=== PATIENT | female | born 1990 | race Caucasian/White ===

== ENCOUNTER → 2020-02-03 | Outpatient (CLI) | payer BC | END | disposition home or self-care (01) | LOC: RADECHMAIN 11:49 | PROVIDERS: ATTEND Family Medicine | DX: I47.1 Supraventricular tachycardia (principal); R00.1 Bradycardia, unspecified | CPT/HCPCS: 93225; 93226 ==

== ENCOUNTER 2022-08-27 02:43 | Inpatient (IN) | payer BC ==
[2022-08-27] MEDS ORDERED: miSOPROStoL 200 MCG TAB PO PRN (03:08)
[2022-08-27] MEDS ORDERED: TRANEXAMIC ACID IN NACL,ISO-OS 1,000 MG in EMPTY BAG 1 BAG IV PRN (03:08)
[2022-08-27] MEDS ORDERED: TERBUTALINE 1 MG/ML VIAL SQ PRN (03:08)
[2022-08-27] MEDS ORDERED: LIDOCAINE 0.5% (PF) 5 MG/ML (50 ML SDV) SQ PRN (03:08)
[2022-08-27] MEDS ORDERED: METHYLERGONOVINE 0.2 MG/ML 1 ML AMP IM PRN (03:08)
[2022-08-27] MEDS ORDERED: CLINDAMYCIN 900 MG in DEXTROSE 5% IN WATER 50 ML IVPB STA ×2 (03:08)
[2022-08-27] MEDS ORDERED: CARBOPROST TROMETHAMINE 250 MCG/ML 1 ML AMP IM PRN (03:08)
[2022-08-27] MEDS ORDERED: OXYTOCIN 10 UNIT/ML 1 ML VIAL IM PRN (03:08)
[2022-08-27] MEDS: LACTATED RINGERS 1,000 ML IV SCH ×3 (03:40→10:12)
[2022-08-27 04:03] LABS: Basophils % (A) 1 %; Eosinophils # (A) 0.1 k/uL (0-0.7); Eosinophils % (A) 1 %; HCT 35.6 % (34.0-46.0); HGB 12.6 gm/dL (11.4-16.0); Lymphocytes # (A) 1.8 k/uL (1.0-4.8); Lymphocytes % (A) 21 %; MCHC 35.4 g/dL (31.0-37.0); MCV 93.4 fL (80.0-100.0); Monocytes # (A) 0.4 k/uL (0-1.0); Monocytes % (A) 5 %; Neutrophils % (A) 70 %; RBC 3.82 m/uL (3.80-5.40); RDW 12.9 % (11.5-15.5); WBC 8.6 k/uL (3.8-10.6)
[2022-08-27] MEDS ORDERED: fentaNYL (PF) 50 MCG/ML 5 ML AMP ONE (04:29)
[2022-08-27] MEDS ORDERED: SODIUM CHLORIDE 0.9% 100 ML BAG ONE (04:29)
[2022-08-27] MEDS ORDERED: ROPIVACAINE 5 MG/ML 20 ML AMPULE ONE (04:29)
[2022-08-27 04:37] LABS: Large Platelets Present; Polychromasia Present
[2022-08-27 04:38] LABS: Platelet Count 96 k/uL (150-450)
--- NOTE | 2022-08-27 05:04 | P.HPOB ---
History of Present Illness H&P Date: 08/27/22 Chief Complaint: Spontaneous rupture membranes This is a 32-year-old female 1 para 0 with an estimated date of confinement of 08/31/2022, estimated gestational age of 39-3/7 weeks, who presents to labor and delivery with complaints of spontaneous rupture membranes with pink tinged clear fluid at approximately 1:45 AM. She did start feeling regular contractions at about 2:30 AM. Her care has been with Dr. Wagner and has been uncomplicated per patient. labs: Random glucose-70 Blood type-O+ B surface antigen-nonreactive 1 hour Glucola-130 Hemoglobin-12 Group B streptococcus-positive Rubella-immune RPR-nonreactive Obstetrical history: Social history: She is . She works as an RN at [employer] Review of Systems Constitutional: Denies chills, Denies fever Eyes: denies blurred vision, denies pain Ears, nose, mouth and throat: Denies headache, Denies sore throat Cardiovascular: Reports rapid heart beat, Denies chest pain, Denies shortness of breath Respiratory: Denies cough Gastrointestinal: Reports abdominal pain (Contractions), Reports heartburn Genitourinary: Reports pelvic pain, Reports Musculoskeletal: Reports low back pain Integumentary: Denies pruritus, Denies rash Neurological: Denies numbness, Denies weakness Psychiatric: Denies anxiety, Denies depression Past Medical History Additional Past Medical History / Comment(s): tachycardia History of Any Multi-Drug Resistant Organisms: None Reported Past Surgical History: Ear Surgery Past Anesthesia/Blood Transfusion Reactions: No Reported Reaction Past Psychological History: No Psychological Hx Reported Smoking Status: Never smoker Past Alcohol Use History: None Reported Past Drug Use History: None Reported - Past Family History Mother Family Medical History: Hypertension Medications and Allergies Home Medications Medication Instructions Recorded Confirmed Type Omeprazole Magnesium [PriLOSEC OTC] 20 mg PO DAILY PRN 08/27/22 08/27/22 History Vit No.179/Iron/Folic 1 each PO DAILY 08/27/22 08/27/22 History [ Tablet] Allergies Allergy/AdvReac Type Severity Reaction Status Date / Time amoxicillin [From Augmentin] Allergy Unknown Verified 08/27/22 02:53 Childhood cefaclor [From Ceclor] Allergy Unknown Verified 08/27/22 02:53 Childhood clavulanic acid Allergy Unknown Verified 08/27/22 02:53 [From Augmentin] Childhood Sulfa (Sulfonamide Allergy Rash/Hives Verified 08/27/22 02:53 Antibiotics) Exam Osteopathic Statement: *. No significant issues noted on an osteopathic structural exam other than those noted in the History and Physical/Consult. Vital Signs Temp Pulse Resp BP Pulse Ox 08/27/22 03:07 97.8 F 82 16 132/95 98 Intake and Output 08/26/22 08/26/22 08/27/22 14:59 22:59 06:59 Other: Weight 58.967 kg HEENT: Within normal limits Heart: Regular rate and rhythm Lungs: Clear to auscultation bilaterally Abdomen: Cervix: 5-1/2-6/100%/-2 station, grossly ruptured clear fluid is noted heart tones: 130s baseline with good accelerations, category 1 Contractions: Every 2-3 minutes Extremities: Negative Homans Results Result Diagrams: 08/27/22 03:30 Abnormal Lab Results - Last 24 Hours (Table) 08/27/22 Range/Units 03:30 Plt Count 96 L (150-450) k/uL Assessment and Plan (1) 39 weeks gestation of Current Visit: Yes Status: Acute Code(s): Z3A.39 - 39 WEEKS GESTATION OF PRE GNANCY SNOMED Code(s): 14305469 (2) Group B Streptococcus carrier, +RV culture, currently Current Visit: Yes Status: Acute Code(s): O99.820 - STREPTOCOCCUS B CARRIER STATE COMPLICATING SNOMED Code(s): 1271454168200 Plan: Admission for active labor. Epidural anesthesia. Expectant management. Anti biotic prophylaxis for group B streptococcus. We'll give clindamycin since she is ALLERGIC to Augmentin.
[2022-08-27] MEDS ORDERED: CLINDAMYCIN 900 MG in DEXTROSE 5% IN WATER 50 ML IVPB SCH ×2 (11:15)
[2022-08-27] MEDS ORDERED: CITRIC ACID-SODIUM CITRATE 15 ML CUP PO ONE (12:01)
[2022-08-27] MEDS ORDERED: KETOROLAC 15 MG/ML 1 ML VIAL ONE (12:12)
[2022-08-27] MEDS ORDERED: MORPHINE SULFATE (PF) 0.3 MG/0.3 ML SYR ONE (12:12)
[2022-08-27] MEDS ORDERED: OXYTOCIN 10 UNIT/ML 1 ML VIAL ONE (12:12)
[2022-08-27] MEDS ORDERED: ONDANSETRON 4 MG/2 ML VIAL ONE (12:12)
[2022-08-27] MEDS ORDERED: OXYTOCIN 30 UNITS/500 ML NS 30 UNIT in SALINE 1 500ML.BAG IV SCH (12:15)
[2022-08-27] MEDS ORDERED: GENTAMICIN IVPB ONE (12:30)
[2022-08-27] MEDS ORDERED: SODIUM CHLORIDE 0.9% IVPB ONE (12:30)
[2022-08-27] MEDS ORDERED: ONDANSETRON 4 MG/2 ML VIAL IVP PRN (13:12)
[2022-08-27] MEDS ORDERED: ZOLPIDEM 5 MG TAB PO PRN (13:12)
[2022-08-27] MEDS ORDERED: NALOXONE 0.4 MG/ML 1 ML VIAL IV PRN (13:12)
[2022-08-27] MEDS ORDERED: diphenhydrAMINE 50 MG CAP PO PRN (13:12)
[2022-08-27] MEDS ORDERED: diphenhydrAMINE 25 MG CAP PO PRN (13:12)
[2022-08-27] MEDS ORDERED: METOCLOPRAMIDE 5 MG/ML 2 ML VIAL IVP PRN (13:12)
[2022-08-27] MEDS ORDERED: LANOLIN CREAM 5 GM TUBE TOPICAL PRN (13:12)
[2022-08-27] MEDS ORDERED: diphenhydrAMINE 50 MG/ML 1 ML VIAL IVP PRN ×2 (13:12)
[2022-08-27] MEDS ORDERED: SIMETHICONE 80 MG CHEWABLE PO PRN (13:12)
--- NOTE | 2022-08-27 13:12 | P.OP ---
Date of Procedure: 08/27/22 Preoperative Diagnosis: 1. at 39.3 2. arrest of descent Postoperative Diagnosis: 1. at 39.3 2. arrest of descent Procedure(s) Performed: Primary low transverse Anesthesia: spinal Surgeon: Ella Wagner Plastics Supervisor #1: Yumi Loza Estimated Blood Loss (ml): 572 IV fluids (ml): 600 Urine output (ml): 150 Pathology: none sent Condition: stable Disposition: floor Indications for Procedure: 32-year-old presented at 39 weeks and 3 days in active labor. She did progress to complete and pushed for over 3 hours without descent. The caput was coming through but the head remained at -1 station. Operative Findings: Viable male, Apgars 8, 9, weight 7 lbs. 1 oz. Normal uterus, tubes, ovaries. Description of Procedure: Patient was taken to the operating room where spinal anesthesia was found be adequate. She was prepped and draped in normal sterile fashion in dorsal supine position with a leftward tilt. Pfannenstiel skin incision was made the scalpel and carried through to the underlying layer of fascia with the scalpel. Fascia was incised in midline and carried bilaterally with the Vergara scissors. The superior aspect of the fascial incision was grasped with Adger clamps elevated and the underlying rectus muscles dissected off with the Vergara's. Attention was then turned to inferior aspect of same incision which in a similar fashion was grasped tented up and the underlying rectus muscles dissected off with the Vergara's. The rectus muscles were the midline and the peritoneum was identified tented up and entered sharply with the scalpel. The incision was extended superiorly and inferiorly with good visualization of the bladder. The bladder blade was inserted and the vesicouterine peritoneum was incised the Metzenbaums then carried bilaterally and bladder flap created digitally. A low transverse incision was then made on the uterus with the scalpel. This was carried bilaterally and digital manner. 's head delivered atraumatically, nose and mouth bulb suctioned, cord clamped and cut, handed off to waiting nurses. Apgars 8,9, weight 7 lbs. 1 oz. Placenta delivered manually, i ntact with three-vessel cord. The uterus is exteriorized and cleared of all clots and debris. The uterine incision was closed with 0 Vicryl in a running locked fashion. Second layer of the same sutures used in imbricating fashion to obtain excellent hemostasis. Bladder flap was then reapproximated using 2-0 Vicryl in a running fashion. Both ovaries and tubes appeared normal. The uterus was placed back into the abdomen. The peritoneum was reapproximated using 2-0 Vicryl in a running fashion. The muscles were reapproximated using 2- 0 Vicryl in interrupted fashion. The fascia was reapproximated using 0 Vicryl in a running fashion. The subcutaneous tissues closed with 3-0 Vicryl running fashion. The skin was closed kenneth. Patient tolerated the procedure well, sponge and instrument counts were correct times 2 and she was taken to the recovery room in stable condition. There was some blood-tinged urine at the end of the procedure but I did visually examined the bladder extensively and did not see any areas of laceration or damage. I do believe that the urine is tinged due to a traumatic catheter placement as well as the head being low and I delivered it. Patient also has some low platelets which could lead to this.
[2022-08-27] MEDS: ACETAMINOPHEN IV (For NPO) 1,000 MG in EMPTY BAG 1 BAG IVPB SCH (15:33)
[2022-08-27] MEDS: ACETAMINOPHEN TAB 500 MG TAB PO SCH (19:14)
[2022-08-27] MEDS: KETOROLAC 15 MG/ML 1 ML VIAL IVP SCH (20:31)
[2022-08-27] MEDS: SENNOSIDES-DOCUSATE SODIUM 1 EACH TAB PO SCH (22:34)
[2022-08-27] MEDS: IBUPROFEN 600 MG TAB PO SCH (22:34)
[2022-08-28] MEDS: KETOROLAC 15 MG/ML 1 ML VIAL IVP SCH ×3 (02:43→19:36)
[2022-08-28] MEDS: LACTATED RINGERS 1,000 ML IV SCH ×5 (05:21→19:37)
[2022-08-28] MEDS: IBUPROFEN 600 MG TAB PO SCH ×3 (05:21→16:34)
[2022-08-28] MEDS: ACETAMINOPHEN TAB 500 MG TAB PO SCH ×5 (05:25→20:34)
[2022-08-28] MEDS: ACETAMINOPHEN IV (For NPO) 1,000 MG in EMPTY BAG 1 BAG IVPB SCH (05:26)
--- NOTE | 2022-08-28 06:25 | P.PNOBGPC ---
Subjective - Subjective Principal diagnosis: Status post primary low transverse postop day 1 Interval history: Patient seen and examined. Denies nausea, vomiting, chest pain, shortness of breath or calf pain. Her urine is clear yellow draining out of the catheter. Patient reports: Reports appetite normal, Reports pain well controlled : doing well Objective - Vital Signs Latest vital signs: Vital Signs Temp Pulse Resp BP Pulse Ox 08/28/22 04:00 98.1 F 75 16 116/75 98 08/28/22 00:00 72 16 126/75 99 08/27/22 20:00 97.9 F 79 16 113/73 97 08/27/22 16:13 96.5 F L 82 15 141/87 08/27/22 15:00 96.5 F L 76 15 142/88 08/27/22 14:30 76 15 122/83 08/27/22 14:00 96.8 F L 80 15 103/59 08/27/22 13:45 80 16 103/69 98 08/27/22 13:30 85 15 101/65 97 08/27/22 13:15 83 15 100/62 98 08/27/22 13:00 96.8 F L 93 15 100/56 98 Intake and Output 08/27/22 08/27/22 08/28/22 14:59 22:59 06:59 Output Total 722 1400 Balance -722 -1400 Output: Urine 150 800 Estimated Blood Loss 572 Output, Quantitative 600 Blood Loss Other: Voiding Method Indwelling Catheter Indwelling Catheter Indwelling Catheter - Exam Lungs: bilateral: normal Chest: Normal S1, Normal S2 Extremities: Present: normal Abdomen: Present: normal appearance, soft. Absent: distention, tenderness Incision: Present: normal, dry, intact Uterus: Present: normal, firm Assessment and Plan (1) Status post primary low transverse section Current Visit: Yes Status: Acute Code(s): Z98.891 - HISTORY OF UTERINE SCAR FROM PREVIOUS SURGERY SNOMED Code(s): 908091699 Plan: 1. DC catheter and DC IV fluids 2. Increase ambulation
[2022-08-28 07:05] LABS: Basophils % (A) 0 %; Eosinophils % (A) 0 %; HCT 25.7 % (34.0-46.0); Lymphocytes # (A) 1.2 k/uL (1.0-4.8); Lymphocytes % (A) 11 %; MCH 32.6 pg (25.0-35.0); MCHC 34.3 g/dL (31.0-37.0); MCV 94.9 fL (80.0-100.0); Mean Platelet Volume 8.8; Monocytes # (A) 0.4 k/uL (0-1.0); Monocytes % (A) 4 %; Neutrophils # (A) 9.4 k/uL (1.3-7.7); Neutrophils % (A) 84 %; RBC 2.71 m/uL (3.80-5.40); RDW 13.1 % (11.5-15.5); WBC 11.2 k/uL (3.8-10.6)
[2022-08-28 07:07] LABS: HGB 8.8 gm/dL (11.4-16.0); Platelet Count 88 k/uL (150-450)
--- NOTE | 2022-08-28 07:29 | P.PN ---
Progress Note - Text Progress Note Date: 08/28/22 Postoperative day 1 status post section under spinal anesthesia, and i ntrathecal morphine given for postoperative analgesia, patient doing well, there is no anesthesia related complications, Patient had no headache, vital signs stable , Assessment and plan= postop day 1 status post , doing well there is no anesthesia related complication.
[2022-08-28] MEDS: SENNOSIDES-DOCUSATE SODIUM 1 EACH TAB PO SCH ×2 (11:11→20:34)
[2022-08-29] MEDS: IBUPROFEN 600 MG TAB PO SCH ×2 (01:06→07:41)
[2022-08-29 01:42] VITALS: RESP 16
[2022-08-29] MEDS: KETOROLAC 15 MG/ML 1 ML VIAL IVP SCH (02:48)
[2022-08-29] MEDS: LACTATED RINGERS 1,000 ML IV SCH ×2 (02:49)
[2022-08-29] MEDS: ACETAMINOPHEN TAB 500 MG TAB PO SCH (04:29)
[2022-08-29 07:55] VITALS: BP 131/87; PULSE 79; TEMP 97.6
--- NOTE | 2022-08-29 08:53 | P.DS ---
Providers Date of admission: 08/27/22 03:01 Expected date of discharge: 08/29/22 Attending physician: Ella Wagner Primary care physician: Stated None - Discharge Diagnosis(es) (1) Status post primary low transverse section Current Visit: Yes Status: Acute Hospital Course: Patient presented in active labor. She underwent a primary low transverse C- section for arrest of descent. Postoperatively she is doing very well. Denies nausea, vomiting, chest pain, shortness of breath or calf pain. She is voiding without difficulty and this is nonbloody now. She is ambulating without problem. Her incision is clean, dry, intact. She will be discharged home postoperative day #2 in stable condition to follow-up with me in one week. Plan - Discharge Summary Discharge Rx Participant: No New Discharge Prescriptions: New Ibuprofen [Motrin] 600 mg PO Q6H #30 tab oxyCODONE HCL [OxyIR] 5 mg PO Q4HR PRN #18 tab PRN Reason: Pain Scale 4 - 6 No Action Vit No.179/Iron/Folic [ Tablet] 1 each PO DAILY Omeprazole Magnesium [PriLOSEC OTC] 20 mg PO DAILY PRN PRN Reason: Heartburn Discharge Medication List Omeprazole Magnesium [PriLOSEC OTC] 20 mg PO DAILY PRN 08/27/22 [History] Vit No.179/Iron/Folic [ Tablet] 1 each PO DAILY 08/27/22 [History] Ibuprofen [Motrin] 600 mg PO Q6H #30 tab 08/29/22 [Rx] oxyCODONE HCL [OxyIR] 5 mg PO Q4HR PRN #18 tab 08/29/22 [Rx] Follow up Appointment(s)/Referral(s): Ella Wagner DO [Doctor of Osteopathic Medicine] - 10/10/22 3:45 pm (Post Op Appointment 09-05-2022 at 9:00) Discharge Disposition: HOME SELF-CARE
== END 2022-08-29 10:05 | disposition home or self-care (01) | DRG 788 ==
LOC: FBPOP 02:43 → 4FBP 03:01
PROVIDERS: ADMIT Obstetrics & Gynecology; ATTEND Obstetrics & Gynecology
PROC: 10D00Z1 Extraction of Products of Conception, Low, Open Approach (ICD-10-PCS; principal; 2022-08-27 12:10)
DX: O99.824 Streptococcus B carrier state complicating childbirth (principal); B95.1 Streptococcus, group B, as the cause of diseases classified elsewhere; O62.1 Secondary uterine inertia; O99.42 Diseases of the circulatory system complicating childbirth; I49.9 Cardiac arrhythmia, unspecified; Z37.0 Single live birth; Z3A.39 39 weeks gestation of pregnancy; Z79.899 Other long term (current) drug therapy; Z88.0 Allergy status to penicillin; Z88.2 Allergy status to sulfonamides; Z88.1 Allergy status to other antibiotic agents; Z88.8 Allergy status to other drugs, medicaments and biological substances
CPT/HCPCS: 59025; 84112; 85025; 86850; 86900; 86901; 99213

== ENCOUNTER 2024-06-03 23:21 | Inpatient (IN) | payer BC ==
[2024-06-03] MEDS ORDERED: METHYLERGONOVINE 0.2 MG/ML 1 ML AMP IM PRN (23:53)
[2024-06-03] MEDS ORDERED: OXYTOCIN 10 UNIT/ML 1 ML VIAL IM PRN (23:53)
[2024-06-03] MEDS ORDERED: TRANEXAMIC 1,000 MG/100ML-NACL 1,000 MG in EMPTY BAG 1 BAG IV PRN (23:53)
[2024-06-03] MEDS ORDERED: miSOPROStoL 200 MCG TAB PO PRN (23:53)
[2024-06-03] MEDS ORDERED: CARBOPROST TROMETHAMINE 250 MCG/ML 1 ML AMP IM PRN (23:53)
[2024-06-04] MEDS: CITRIC ACID-SODIUM CITRATE 15 ML CUP PO ONE
[2024-06-04 00:16] LABS: Basophils % (A) 0 %; Eosinophils % (A) 0 %; HCT 34.1 % (34.0-46.0); HGB 11.5 gm/dL (11.4-16.0); Lymphocytes # (A) 0.7 k/uL (1.0-4.8); Lymphocytes % (A) 7 %; MCH 32.6 pg (25.0-35.0); MCHC 33.8 g/dL (31.0-37.0); MCV 96.5 fL (80.0-100.0); Mean Platelet Volume 8.2; Monocytes # (A) 0.3 k/uL (0-1.0); Monocytes % (A) 3 %; Neutrophils # (A) 8.4 k/uL (1.3-7.7); Neutrophils % (A) 88 %; Platelet Count 205 k/uL (150-450); RBC 3.53 m/uL (3.80-5.40); RDW 12.3 % (11.5-15.5); WBC 9.5 k/uL (3.8-10.6)
--- NOTE | 2024-06-04 00:21 | P.HPOB ---
History of Present Illness H&P Date: 06/04/24 Chief Complaint: labor 34 year old presents at 35 weeks 3 days for complaining of chio. Her cervix is 5-6cm dilated. She had a previous c/s and plans repeat. She will be admitted for repeat low transverse with bilateral salpingectomy. Review of Systems All systems: negative Constitutional: Denies chills, Denies fever Eyes: denies blurred vision, denies pain Ears, nose, mouth and throat: Denies headache, Denies sore throat Cardiovascular: Denies chest pain, Denies shortness of breath Respiratory: Denies cough Gastrointestinal: Denies abdominal pain, Denies diarrhea, Denies nausea, Denies vomiting Genitourinary: Denies dysuria, Denies hematuria Musculoskeletal: Denies myalgias Integumentary: Denies pruritus, Denies rash Neurological: Denies numbness, Denies weakness Psychiatric: Denies anxiety, Denies depression Endocrine: Denies fatigue, Denies weight change Past Medical History Additional Past Medical History / Comment(s): tachycardia History of Any Multi-Drug Resistant Organisms: None Reported Past Surgical History: Ear Surgery Past Anesthesia/Blood Transfusion Reactions: No Reported Reaction Smoking Status: Never smoker - Past Family History Mother Family Medical History: Hypertension Medications and Allergies Home Medications Medication Instructions Recorded Confirmed Type No Known Home Medications 06/03/24 06/03/24 History Allergies Allergy/AdvReac Type Severity Reaction Status Date / Time amoxicillin [From Augmentin] Allergy Unknown Verified 06/03/24 23:33 Childhood cefaclor [From Ceclor] Allergy Unknown Verified 06/03/24 23:33 Childhood clavulanic acid Allergy Unknown Verified 06/03/24 23:33 [From Augmentin] Childhood Sulfa (Sulfonamide Allergy Rash/Hives Verified 06/03/24 23:33 Antibiotics) Exam Osteopathic Statement: *. No significant issues noted on an osteopathic structural exam other than those noted in the History and Physical/Consult. Intake and Output 06/03/24 06/03/24 06/04/24 14:59 22:59 06:59 Other: Weight 61.235 kg HEart: RRR Lungs: CTAB Abdomen: soft, nontender Extremeties: neg trenton's Assessment and Plan (1) Previous section Current Visit: Yes Status: Acute Code(s): Z98.891 - HISTORY OF UTERINE SCAR FROM PREVIOUS SURGERY SNOMED Code(s): 419747232 (2) 35 weeks gestation of Current Visit: Yes Status: Acute Code(s): Z3A.35 - 35 WEEKS GESTATION OF SNOMED Code(s): 95045562 (3) Active labor Current Visit: Yes Status: Acute Code(s): TMQ8008 - SNOMED Code(s): 935455815 Plan: 1. repeat low transverse with bilateral salpingectomy
[2024-06-04] MEDS ORDERED: MORPHINE SULFATE (PF) 0.3 MG/0.3 ML SYR ONE (00:23)
[2024-06-04] MEDS ORDERED: OXYTOCIN 30 UNITS/500 ML NS BAG IV ONE (00:23)
[2024-06-04] MEDS ORDERED: NALBUPHINE (ANES) 10 MG/ML - 1 ML AMP ONE (00:23)
[2024-06-04] MEDS ORDERED: ONDANSETRON 4 MG/2 ML VIAL ONE (00:23)
[2024-06-04] MEDS ORDERED: DEXAMETHASONE SOD PHOSPHATE 4 MG/ML 1 ML VIAL ONE (00:23)
[2024-06-04] MEDS ORDERED: KETOROLAC 15 MG/ML 1 ML VIAL ONE (00:23)
[2024-06-04] MEDS ORDERED: diphenhydrAMINE 25 MG CAP PO PRN (01:03)
[2024-06-04] MEDS ORDERED: NALOXONE 0.4 MG/ML 1 ML VIAL IV PRN (01:03)
[2024-06-04] MEDS ORDERED: ONDANSETRON 4 MG/2 ML VIAL IVP PRN (01:03)
[2024-06-04] MEDS ORDERED: ZOLPIDEM 5 MG TAB PO PRN (01:03)
[2024-06-04] MEDS ORDERED: diphenhydrAMINE 50 MG CAP PO PRN (01:03)
[2024-06-04] MEDS ORDERED: LANOLIN CREAM 1 GM TUBE TOPICAL PRN (01:03)
[2024-06-04] MEDS ORDERED: diphenhydrAMINE 50 MG/ML 1 ML VIAL IVP PRN ×2 (01:03)
[2024-06-04] MEDS ORDERED: METOCLOPRAMIDE 5 MG/ML 2 ML VIAL IVP PRN (01:03)
[2024-06-04] MEDS ORDERED: OXYTOCIN 30 UNITS/500 ML NS 30 UNIT in SALINE 1 500ML.BAG IV SCH (01:15)
[2024-06-04] MEDS: OXYTOCIN 30 UNITS/500 ML NS 30 UNIT in SALINE 1 500ML.BAG IV SCH (01:21)
--- NOTE | 2024-06-04 08:49 | P.OP ---
Date of Procedure: 06/04/24 Preoperative Diagnosis: 1. at 35 weeks 3 days 2. active labor 3. previous 4 .family planning Postoperative Diagnosis: same Procedure(s) Performed: repeat low transverse with bilteral salpingectomy Anesthesia: spinal Surgeon: Ella Wagner Trail Maintenance Worker #1: Enma Herzog Estimated Blood Loss (ml): 400 IV fluids (ml): 600 Urine output (ml): 200 Pathology: other (bilateral fallopian tubes) Condition: stable Disposition: floor Indications for Procedure: 34-year-old G2, P1 presented at 35 weeks and 3 days in active labor. She was 5 to 6 cm dilated. heart tones were category 1. Patient had a previous section and planned repeat with bilateral salpingectomy. Operative Findings: Viable , 1 at 1 minute, 6 at 5 minutes and 6 at 10 minutes. Normal uterus, tubes, ovaries. Description of Procedure: Patient was taken to the operating room where spinal anesthesia was found be adequate. She was prepped and draped in normal sterile fashion in dorsal supine position with a leftward tilt. Pfannenstiel skin incision was made the scalpel and carried through to the underlying layer of fascia with the scalpel. Fascia was incised in midline and carried bilaterally with the Vergara scissors. The superior aspect of the fascial incision was grasped with Sandro clamps elevated and the underlying rectus muscles dissected off with the Vergara's. Attention was then turned to inferior aspect of same incision which in a similar fashion was grasped tented up and the underlying rectus muscles dissected off with the Vergara's. The rectus muscles were the midline and the peritoneum was identified tented up and entered sharply with the scalpel. The incision was extended superiorly and inferiorly with good visualization of the bladder. The bladder blade was inserted and the vesicouterine peritoneum was incised the Metzenbaums then carried bilaterally and bladder flap created digitally. A low transverse incision was then made on the uterus with the scalpel. This was carried bilaterally and digital manner. Infant's head delivered atraumatically, nose and mouth bulb suctioned, cord clamped and cut, handed off to waiting nurses. Apgars 1,6,6 weight 5 lbs. 2 oz. Placenta delivered manually, intact with three-vessel cord. The uterus is exteriorized and cleared of all clots and debris. The uterine incision was closed with 0 Vicryl in a running locked fashion. Both ovaries and tubes appeared normal. The right fallopian tube was grasped with a Allis clamp. The LigaSure was used to seal and cut along the mesosalpinx to the remove the right fallopian tube. The same was done on the left side where the left fallopian tube was grasped with a Allis clamp and the left mesosalpinx was sealed and cut using the LigaSure to remove the left fallopian tube. The uterus was placed back into the abdomen. The peritoneum was reapproximated using 2-0 Vicryl in a running fashion. The muscles were reapproximated using 2-0 Vicryl in interrupted fashion. The fascia was reapproximated using 0 Vicryl in a running fashion. The subcutaneous tissues closed with 3-0 Vicryl running fashion. The skin was closed kenneth. Patient tolerated the procedure well, sponge and instrument counts were correct times 2 and she was taken to the recovery room in stable condition.
[2024-06-04] MEDS: ACETAMINOPHEN TAB 500 MG TAB PO SCH (09:00)
[2024-06-04] MEDS: SENNOSIDES-DOCUSATE SODIUM 1 EACH TAB PO SCH (09:00)
[2024-06-04] MEDS: LACTATED RINGERS 1,000 ML IV SCH ×2 (10:34)
[2024-06-04] MEDS: KETOROLAC 15 MG/ML 1 ML VIAL IVP SCH (12:59)
[2024-06-04] MEDS: IBUPROFEN 800 MG TAB PO SCH (20:51)
[2024-06-05 06:56] LABS: Basophils % (A) 0 %; Eosinophils % (A) 0 %; HCT 28.3 % (34.0-46.0); Lymphocytes # (A) 1.8 k/uL (1.0-4.8); Lymphocytes % (A) 21 %; MCH 33.5 pg (25.0-35.0); MCHC 34.5 g/dL (31.0-37.0); MCV 97.2 fL (80.0-100.0); Mean Platelet Volume 8.2; Monocytes # (A) 0.4 k/uL (0-1.0); Monocytes % (A) 5 %; Neutrophils # (A) 6.2 k/uL (1.3-7.7); Neutrophils % (A) 72 %; Platelet Count 177 k/uL (150-450); RBC 2.91 m/uL (3.80-5.40); RDW 12.4 % (11.5-15.5); WBC 8.6 k/uL (3.8-10.6)
[2024-06-05 07:30] LABS: HGB 9.8 gm/dL (11.4-16.0)
[2024-06-05] MEDS ORDERED: IBUPROFEN 800 MG TAB PO SCH (08:00)
--- NOTE | 2024-06-05 09:27 | P.PN ---
Progress Note - Text 06/05/24 850AM 34-year-old female status post with spinal Duramorph. Patient was seen and evaluated for postop pain control, she had a VAS of 6. She does not have any complaints of nausea vomiting or pruritus.
--- NOTE | 2024-06-05 12:03 | P.PNOBGPC ---
Subjective - Subjective Patient reports: Reports appetite normal, Reports voiding normally, Reports pain well controlled, Reports ambulating normally : doing well, in NICU (For issues of prematurity) Objective - Vital Signs Latest vital signs: Vital Signs Temp Pulse Resp BP Pulse Ox 06/05/24 07:52 97.6 F 69 16 112/70 99 06/04/24 23:30 97.9 F 70 16 106/60 97 06/04/24 20:00 97.5 F L 75 16 98/60 98 Intake and Output 06/04/24 06/05/24 06/05/24 22:59 06:59 14:59 Intake Total 600 Balance 600 Intake: Oral 600 Other: # Voids 1 - Exam Extremities: Present: normal Abdomen: Present: normal appearance, soft. Absent: distention, tenderness Incision: Present: normal, dry, intact Uterus: Present: normal, firm (The uterine fundus is tonic in appropriately tender below the umbilicus.) - Labs Labs: Abnormal Lab Results - Last 24 Hours (Table) 06/05/24 Range/Units 05:47 RBC 2.91 L (3.80-5.40) m/uL Hgb 9.8 L D (11.4-16.0) gm/dL Hct 28.3 L (34.0-46.0) % Assessment and Plan (1) Status post section Current Visit: Yes Status: Acute Code(s): Z98.891 - HISTORY OF UTERINE SCAR FROM PREVIOUS SURGERY SNOMED Code(s): 878080185 Plan: Continue routine and postoperative care. As the infant remains in the nursery, she will likely remain for the entire extent allowed unless the infant is discharged sooner than postoperative day #4. I have encouraged the patient ambulate in the hallways routinely.
[2024-06-06] MEDS: SIMETHICONE 80 MG CHEWABLE PO PRN (00:37)
--- NOTE | 2024-06-06 11:06 | P.PNOBGPC ---
Subjective - Subjective Patient reports: Reports appetite normal, Reports voiding normally, Reports pain well controlled, Reports ambulating normally : doing well, in NICU (Stable, being treated for issues of prematurity.) Objective - Vital Signs Latest vital signs: Vital Signs Temp Pulse Resp BP Pulse Ox 06/06/24 07:37 98.1 F 75 16 114/68 06/06/24 00:00 97.5 F L 82 16 105/68 98 06/05/24 16:00 97.6 F 88 16 110/71 100 Intake and Output 06/05/24 06/06/24 06/06/24 22:59 06:59 14:59 Intake Total 0 Balance 0 Intake: Oral 0 - Exam Extremities: Present: normal Abdomen: Present: normal appearance, soft. Absent: distention, tenderness Incision: Present: normal, dry, intact Uterus: Present: normal, firm (The uterine fundus is tonic and appropriately tender well below the umbilicus.) Assessment and Plan (1) Status post section Current Visit: Yes Status: Acute Code(s): Z98.891 - HISTORY OF UTERINE SCAR FROM PREVIOUS SURGERY SNOMED Code(s): 650911414 Plan: Continue routine and postoperative care. I would anticipate the patient remaining in the hospital until postoperative day #4 unless the infant is unexpectedly discharged prior to that. I have continued to encourage her to ambulate in the hallways routinely. She did report some reflux yesterday and I have made her aware that the medication can be made available if she needs it.
--- NOTE | 2024-06-07 07:26 | P.PNOBGPC ---
Subjective - Subjective Principal diagnosis: Status post repeat low-transverse postop day 3 Interval history: Patient seen and examined. Denies nausea, vomiting, chest pain, shortness of breath or calf pain. She is ambulating voiding without difficulty. Patient reports: Reports appetite normal, Reports voiding normally, Reports pain well controlled, Reports ambulating normally : doing well (in the Nursery off oxygen starting to nipple feed) Objective - Vital Signs Latest vital signs: Vital Signs Temp Pulse Resp BP Pulse Ox 06/06/24 23:22 97.8 F 76 14 105/63 99 06/06/24 16:00 98.0 F 78 14 110/70 06/06/24 07:37 98.1 F 75 16 114/68 Intake and Output 06/06/24 06/07/24 06/07/24 22:59 06:59 14:59 Other: # Voids 2 1 # Bowel Movements 1 - Exam Lungs: bilateral: normal Chest: Normal S1, Normal S2 Extremities: Present: normal Abdomen: Present: normal appearance, soft. Absent: distention, tenderness Incision: Present: normal, dry, intact Uterus: Present: normal, firm Assessment and Plan (1) Previous section Current Visit: Yes Status: Acute Code(s): Z98.891 - HISTORY OF UTERINE SCAR FROM PREVIOUS SURGERY SNOMED Code(s): 801362594 (2) 35 weeks gestation of Current Visit: Yes Status: Resolved Code(s): Z3A.35 - 35 WEEKS GESTATION OF SNOMED Code(s): 50980234 (3) Active labor Current Visit: Yes Status: Resolved Code(s): EUX7613 - SNOMED Code(s): 197581652 (4) Status post repeat low transverse section Current Visit: Yes Status: Acute Code(s): Z98.891 - HISTORY OF UTERINE SCAR FROM PREVIOUS SURGERY SNOMED Code(s): 421561100 (5) Status post bilateral salpingectomy Current Visit: Yes Status: Acute Code(s): Z90.79 - ACQUIRED ABSENCE OF OTHER GENITAL ORGAN(S) SNOMED Code(s): 386504165 Plan: 1. increase ambulation 2. remove kenneth
[2024-06-07 23:46] VITALS: RESP 16
[2024-06-08 07:31] VITALS: BP 115/74; PULSE 95; TEMP 97.8
--- NOTE | 2024-06-08 07:32 | P.DS ---
Providers Date of admission: 06/04/24 00:00 Expected date of discharge: 06/08/24 Attending physician: Ella Wagner Primary care physician: Stated None - Discharge Diagnosis(es) (1) Previous section Current Visit: Yes Status: Acute (2) 35 weeks gestation of Current Visit: Yes Status: Resolved (3) Active labor Current Visit: Yes Status: Resolved (4) Status post repeat low transverse section Current Visit: Yes Status: Acute (5) Status post bilateral salpingectomy Current Visit: Yes Status: Acute Hospital Course: She presented in active labor at 35 weeks. She underwent a repeat low- transverse and bilateral salpingectomy as planned. Postoperative course was uneventful. She denies nausea, vomiting, chest pain, shortness of breath or calf pain. She will be discharged home postop day 1/4 in stable condition to follow-up with me in 2 weeks. Plan - Discharge Summary New Discharge Prescriptions: No Action No Known Home Medications Discharge Medication List No Known Home Medications 06/03/24 [History] Follow up Appointment(s)/Referral(s): Ella Wagner DO [Doctor of Osteopathic Medicine] - 06/21/24 3:15 pm (Post appointment 07-20-2024 at 1:15 pm) Discharge Disposition: HOME SELF-CARE
== END 2024-06-08 15:30 | disposition home or self-care (01) | DRG 785 ==
LOC: FBPOP 23:21 → 4FBP 06-04
PROVIDERS: ADMIT Obstetrics & Gynecology; ATTEND Obstetrics & Gynecology
PROC: 10D00Z1 Extraction of Products of Conception, Low, Open Approach (ICD-10-PCS; principal; 2024-06-04)
PROC: 0UB70ZZ Excision of Bilateral Fallopian Tubes, Open Approach (ICD-10-PCS; principal; 2024-06-04)
DX: O34.211 Maternal care for low transverse scar from previous cesarean delivery (principal); K21.9 Gastro-esophageal reflux disease without esophagitis; O99.63 Diseases of the digestive system complicating the puerperium; Z30.2 Encounter for sterilization; Z88.0 Allergy status to penicillin; Z88.1 Allergy status to other antibiotic agents; Z88.2 Allergy status to sulfonamides; Z3A.35 35 weeks gestation of pregnancy; Z37.0 Single live birth
CPT/HCPCS: 59025; 85025; 86850; 86900; 86901; 88302; 88307; 99213